=== PATIENT | male | born 1945 | race Caucasian/White ===

== ENCOUNTER 2018-03-07 10:37 | Day surgery (SDC) | payer OTHER ==
[~2018-03-07 10:37] MED LIST: CATAFLAM50 MG PO; CIPRO500 MG PO; INTESTINEX1 CA1 PO; LIPITOR20 MG PO; Levsin/Sl 0.125 MG TAB.SUBL SL; OXYC1TAB9 PO; ULTRACET PO
== END 2018-03-07 17:10 | disposition home or self-care (01) ==
LOC: AMB-ENDOS 10:37
DX: D12.2 Benign neoplasm of ascending colon (principal); D12.3 Benign neoplasm of transverse colon; D12.4 Benign neoplasm of descending colon

== ENCOUNTER 2019-03-13 05:55 | Day surgery (SDC) | payer OTHER | END 2019-03-13 10:40 | disposition home or self-care (01) | LOC: AMB-ENDOS 05:55 | DX: K57.30 Diverticulosis of large intestine without perforation or abscess without bleeding (principal); K64.8 Other hemorrhoids ==